=== PATIENT | female | born 1955 | race African-American/Black ===

== ENCOUNTER 2017-01-03 11:53 | Emergency (ER) | payer MEDICARE, MEDICAID ==
[~2017-01-03] VITALS: Ht 170.2 cm; Wt 100.0 kg
[2017-01-03] MEDS ORDERED: KETOROLAC 30MG/ML VIAL IM ONE (13:00)
[2017-01-03] MEDS ORDERED: ONDANSETRON 4MG ODT PO ONE (13:00)
[2017-01-03] MEDS ORDERED: FAMOTIDINE 20MG TABLET PO ONE (13:00)
[2017-01-03] MEDS ORDERED: ACETAMINOPHEN 650MG/20.3ML UDC PO ONE (14:00)
[2017-01-03 14:35] VITALS: BP 144/75
== END 2017-01-03 16:36 | disposition home or self-care (01) ==
LOC: ER 13:38
DX: K52.9 Noninfective gastroenteritis and colitis, unspecified (principal); I10 Essential (primary) hypertension; Z96.659 Presence of unspecified artificial knee joint
CPT/HCPCS: 99284; Q0162; J1885

== ENCOUNTER 2018-07-01 13:24 | Emergency (ER) | payer MEDICARE, MEDICAID ==
[~2018-07-01] VITALS: Ht 170.2 cm; Wt 91.0 kg
[2018-07-01] MEDS ORDERED: TRAMADOL 50MG TABLET PO ONE (15:00)
[2018-07-01 15:42] VITALS: BP 158/100
== END 2018-07-01 15:50 | disposition home or self-care (01) ==
LOC: ER 13:24
DX: S39.012A Strain of muscle, fascia and tendon of lower back, initial encounter (principal); I10 Essential (primary) hypertension; Z96.659 Presence of unspecified artificial knee joint; W18.40XA Slipping, tripping and stumbling without falling, unspecified, initial encounter; Y93.89 Activity, other specified; Y92.512 Supermarket, store or market as the place of occurrence of the external cause
CPT/HCPCS: 99282